=== PATIENT | female | born 1980 | race Hispanic/Latino ===

== ENCOUNTER 2018-05-04 10:47 | Emergency (ER) | payer OTHER ==
[2018-05-04 11:12] VITALS: RESP 18
[2018-05-04] MEDS ORDERED: Sodium Chloride 0.9% 1,000 ML IV STA (11:25)
--- NOTE | 2018-05-04 11:28 | ED PDOC ---
HPI: Abdomen Time Seen by Provider: 05/04/18 11:15 Chief Complaint (Nursing): Abdominal Pain History Per: Patient Onset/Duration Of Symptoms: Days (5) Current Symptoms Are (Timing): Still Present Severity: Moderate Location Of Pain/Discomfort: RLQ, LLQ Quality Of Discomfort: Cramping Associated Symptoms: Fever, Diarrhea. denies: Nausea, Vomiting Exacerbating Factors: Food Alleviating Factors: None Additional Complaint(s): Crampy lower abd pain assoc with diarrhea. Has noted small amount of bright red blood. No vomiting. No fever prior to today. Seen at Urgent Care and prescribed Cipro with no improvement. Past Medical History Vital Signs: Last Vital Signs Temp 100.5 F H 05/04/18 11:08 Pulse 107 H 05/04/18 11:08 Resp 18 05/04/18 11:08 BP 108/68 05/04/18 11:08 Pulse Ox 98 05/04/18 11:08 - Medical History PMH: No Chronic Diseases - Family History Family History: States: Unknown Family Hx - Home Medications Home Medications: Ambulatory Orders Medication Instructions Recorded Ciprofloxacin HCl [Cipro] 500 mg PO BID #6 tab 05/04/18 Dicyclomine [Dicyclomine HCl] 10 mg PO Q8 #10 cap 05/04/18 Metronidazole [Flagyl] 500 mg PO BID #20 tablet 05/04/18 - Allergies Allergies/Adverse Reactions: Allergies Allergy/AdvReac Type Severity Reaction Status Date / Time No Known Allergies Allergy Verified 05/04/18 11:07 Review of Systems ROS Statement: Except As Marked, All Systems Reviewed And Found Negative Gastrointestinal: Positive for: Abdominal Pain, Diarrhea, Hematochezia Physical Exam - Reviewed Nursing Documentation Reviewed: Yes Vital Signs Reviewed: Yes - Physical Exam Appears: Positive for: Non-toxic, No Acute Distress Head Exam: Positive for: ATRAUMATIC, NORMAL INSPECTION, NORMOCEPHALIC Skin: Positive for: Normal Color, Warm, DRY Eye Exam: Positive for: EOMI ENT: Positive for: Other (Mucous membranes dry) Neck: Positive for: Normal Cardiovascular/Chest: Positive for: Regular Rate, Rhythm Respiratory: Positive for: CNT, Normal Breath Sounds Gastrointestinal/Abdominal: Positive for: Normal Exam, Soft Back: Positive for: Normal Inspection Extremity: Positive for: Normal ROM Neurologic/Psych: Positive for: Alert, Oriented - Laboratory Results Result Diagrams: 05/04/18 11:35 05/04/18 11:35 - ECG O2 Sat by Pulse Oximetry: 98 Medical Decision Making Medical Decision Making: Discussed CT findings and need for IV antibiotics as with fever and tachycardia possibility of sepsis exists. Pt states she prefers to take PO antibiotics and f/u with GI. Aware of risks including perforation, sepsis and . Advised to return to ED if pain or fever persists, vomiting or intolerance of PO antibiotics. Disposition - Clinical Impression Clinical Impression: Colitis - Patient ED Disposition Is Patient to be Admitted: No Counseled Patient/Family Regarding: Studies Performed, Diagnosis, Need For Followup, Rx Given - Disposition Referrals: Julián Anderson MD, PhD [Staff Provider] - Disposition: Routine/Home Disposition Time: 13:35 Condition: FAIR Prescriptions: Ciprofloxacin HCl [Cipro] 500 mg PO BID #6 tab Dicyclomine [Dicyclomine HCl] 10 mg PO Q8 #10 cap Metronidazole [Flagyl] 500 mg PO BID #20 tablet Instructions: Colitis Forms: [employer] (Azeri)
[2018-05-04 12:05] LABS: ALB/GLOB RATIO 1.2 (1.0-2.1); ALBUMIN 3.7 g/dL (3.5-5.0); ALT/SGPT 24 U/L (9-52); AST/SGOT 18 U/L (14-36); BLOOD UREA NITROGEN 6 mg/dl (7-17); CALCIUM 8.2 mg/dL (8.4-10.2); GFR NON-AFRICAN AMERICAN > 60
[2018-05-04 12:08] LABS: BASO % 0.2 % (0.0-2.0); EOS % 0.2 % (0.0-4.0); HEMOGLOBIN 12.4 g/dL (12.0-16.0); LYMPH # 1.3 K/uL (1.0-4.3); LYMPH % 10.6 % (20.0-40.0); MEAN CELL VOLUME 85.5 fl (81.0-99.0); MEAN CORPUSCULAR HEMOGLOBIN 27.3 pg (27.0-31.0); MEAN PLATELET VOLUME 7.9 fl (7.2-11.7); MONO # 1.4 K/uL (0.0-0.8); MONO % 11.8 % (0.0-10.0); NEUT # 9.2 K/uL (1.8-7.0); NEUT % 77.2 % (50.0-75.0); RBC 4.55 Mil/uL (3.80-5.20); RED CELL DISTRIBUTION WIDTH 13.8 % (11.5-14.5); WHITE BLOOD COUNT 11.9 K/uL (4.8-10.8)
[2018-05-04] MEDS ORDERED: Iohexol 300 100 ML IJ ONE (12:24)
[2018-05-04] MEDS ORDERED: Sodium Chloride 0.9% 50 ML IV ONE (12:24)
--- NOTE | 2018-05-04 13:10 | CT ---
Date of service: 05/04/2018 PROCEDURE: CT Abdomen and Pelvis with contrast HISTORY: Abd pain COMPARISON: None. TECHNIQUE: Contrast dose: 95 mL of Omnipaque 300 Radiation dose: Total exam DLP = 262.62 mGy-cm. This CT exam was performed using one or more of the following dose reduction techniques: Automated exposure control, adjustment of the mA and/or kV according to patient size, and/or use of iterative reconstruction technique. FINDINGS: LOWER THORAX: Unremarkable LIVER: There is some mild prominence and/or mild periportal edema noted. No discrete mass is seen. GALLBLADDER AND BILE DUCTS: Gallbladder unremarkable no dilated extrahepatic bile ducts noted. PANCREAS: Unremarkable. No gross lesion or ductal dilatation. SPLEEN: Unremarkable. ADRENALS: Unremarkable. No mass. KIDNEYS AND URETERS: Unremarkable. No hydronephrosis. No solid mass. VASCULATURE: No aortic aneurysm. There is absence of aortic atherosclerotic calcification and mural plaque on this cross-sectional study. BOWEL: There is a diffuse colonic mild mucosal thickening with the diffuse submucosal edema and diffuse pericolonic edema and pericolonic fluid. The rectum is also likely involved. A diffuse colitis the infectious and/or inflammatory basis is suspect. Few diverticuli may be present. However no focal diverticulitis is bleed present. Diffuse colitis process is instead suggested. No small bowel dilatation seen. APPENDIX: Of the portions visualize this appears normal. PERITONEUM: Unremarkable. No free fluid. No free air. LYMPH NODES: No enlarged lymph nodes. BLADDER: Moderately distended but otherwise unremarkable. REPRODUCTIVE: An intrauterine IUD is in place. Otherwise the uterus is unremarkable. No suspect adnexal masses seen. BONES: No acute fracture. OTHER FINDINGS: None. IMPRESSION: Grossly abnormal colon-a diffuse colitis is suggested. No free air seen. No abscess identified. There is however intra peritoneal free fluid present. No mechanical obstruction appreciated. Small bowel unremarkable. An infectious and/or diffuse inflammatory type of colitis is is favored. Clinical follow-up recommended. Prominent periportal triads a periportal edema inferred.-a hypoalbuminemic state or part of the diffuse colitis inflammatory process is 1 consideration. Clinical correlation to exclude any ascending cholangitis is suggested. As per consultation with the referring physician no altered liver function tests are suggested. These were directly discussed with the ER physician Dr. Marc thornton at approximately 1 o'clock p.m. on 05/04/2018
[2018-05-04] MEDS ORDERED: metroNIDAZOLE 500mg/100ml NS 100 ML IVPB STA (13:43)
[2018-05-04] MEDS ORDERED: Ciprofloxacin 400mg/200ml D5W 400 MG/200 ML BAG IVPB STA (13:43)
[2018-05-04] MEDS ORDERED: Ciprofloxacin 400mg/200ml D5W 400 MG/200 ML BAG IVPB ONE (13:47)
[2018-05-04 14:09] VITALS: O2SAT 99
[2018-05-04] MEDS ORDERED: metroNIDAZOLE 500mg/100ml NS 100 ML IVPB ONE (14:50)
[2018-05-04 17:03] VITALS: BP 109/76; PULSE 89; TEMP 99
== END 2018-05-04 17:05 | disposition home or self-care (01) ==
LOC: H.ER 10:47
DX: K52.9 Noninfective gastroenteritis and colitis, unspecified (principal); E88.09 Other disorders of plasma-protein metabolism, not elsewhere classified
CPT/HCPCS: 74177; 80053; 81025; 85025; 87040; 87230; 96365; 96367; 99285; J0744; J7030; Q9967